=== PATIENT | male | born 1960 | race Caucasian/White ===

== ENCOUNTER 2017-09-19 10:49 | Outpatient (CLI) | payer MEDICARE, OTHER | END 2017-09-19 10:50 | disposition home or self-care (01) | LOC: BICRAD 10:49 | PROVIDERS: ATTEND Family Medicine | DX: M79.641 Pain in right hand (principal); S62.306A Unspecified fracture of fifth metacarpal bone, right hand, initial encounter for closed fracture ==

== ENCOUNTER 2017-10-05 10:50 | Outpatient (CLI) | payer MEDICARE, OTHER | END 2017-10-05 10:51 | disposition home or self-care (01) | LOC: BICMAMMO 10:50 | PROVIDERS: ATTEND Family Medicine | DX: Z13.820 Encounter for screening for osteoporosis (principal); S62.346D Nondisplaced fracture of base of fifth metacarpal bone, right hand, subsequent encounter for fracture with routine healing; M85.88 Other specified disorders of bone density and structure, other site | CPT/HCPCS: 77080 ==

== ENCOUNTER 2018-07-09 10:25 | Outpatient (CLI) | payer MEDICARE, OTHER ==
--- NOTE | 2018-07-09 11:37 | RAD ---
ONE VIEW CHEST: History: Supraclavicular fossa fullness. Comparison: None. FINDINGS: Normal cardiac silhouette. The pulmonary vessels and hilum are normal. Costophrenic angles are clear. No mass. No consolidation. No pneumothorax or osseous abnormality. IMPRESSION: No acute cardiopulmonary process. POS: [facility]
--- NOTE | 2018-07-09 12:12 | RAD ---
CHEST TWO VIEWS: History: Supraclavicular fossa fullness. Comparison: None. FINDINGS: Normal cardiac silhouette. The pulmonary vessels and hilum are normal. Costophrenic angles are clear. No consolidation or masses. No pneumothorax. Chronic change along the posterior right 8th rib. IMPRESSION: No acute cardiopulmonary process. POS: [facility]
== END 2018-07-09 10:26 | disposition home or self-care (01) ==
LOC: BICRAD 10:25
PROVIDERS: ATTEND Family Medicine
DX: R22.2 Localized swelling, mass and lump, trunk (principal)
CPT/HCPCS: 71045; 71046

== ENCOUNTER 2018-10-07 12:34 | Outpatient (CLI) | payer MEDICARE, OTHER ==
[~2018-10-07 12:34] MED LIST: Iopamidol 370 76% 100 ML VIAL ONE
--- NOTE | 2018-10-07 13:29 | CT ---
CT NECK SOFT TISSUES WITH CONTRAST: 10/07/2018 HISTORY: A 58-year-old male with left-sided neck swelling. FINDINGS: Posterior to the external skin marking, there is a cluster of a few mildly enlarged left lateral uppe r supraclavicular lymph nodes, at least two. The larger one is approximately 1 cm in size. It is un certain whether or not this cluster corresponds to the palpable lump or swelling mentioned in the his tory. There are no other significantly enlarged cervical lymph nodes. There is nonspecific asymmetry of th e larynx. There is a 0.7 x 0.5 x 0.7 cm focal low density mucosal lesion protruding from the left li ngual tonsil into the left side of the vallecula, contacting the epiglottis. The epiglottis is not t hickened. There is a tiny calcification at the inferior edge of this cystic lesion. No major pathology of the thyroid gland identified. No major pathology identified involving the post erior cervical, retropharyngeal, parapharyngeal, carotid, parotid, scale installer, or submandibular space s. IMPRESSION: 1. Slightly prominent, nonspecific left supraclavicular lymph nodes. 2. Incidental finding of an exophytic cystic lesion protruding from the left side of the lingual ton anand to the left side of the vallecula. 3. No other significant pathology identified. POS: [facility]
== END 2018-10-07 12:35 | disposition home or self-care (01) ==
LOC: BICCT 12:34
PROVIDERS: ATTEND Family Medicine
DX: R22.1 Localized swelling, mass and lump, neck (principal)
CPT/HCPCS: 70491; 82565; Q9967

== ENCOUNTER 2019-10-07 09:17 | Outpatient (CLI) | payer MEDICARE, OTHER ==
--- NOTE | 2019-10-07 14:07 | BD ---
BONE DENSITOMETRY USING DEXA: HISTORY: A 59-year-old male with screening for osteoporosis. FINDINGS: Lumbar Spine: BMD (g/cm2) L1 1.065 T-Score: -0.1 Z-Score: 0.5 L2 1.184 T-Score: 0.8 Z-Score: 1.5 L3 1.242 T-Score: 1.3 Z-Score: 1.9 L4 1.231 T-Score: 1.3 Z-Score: 2.0 L1-L4 1.184 T-Score: 0.8 Z-Score: 1.5 Femoral Neck: 0.714 T-Score: -1.6 Z-Score: -0.6 Total Femur: 0.927 T-Score: -0.7 Z-Score: -0.2 The 10-year fracture risk for a major osteoporotic fracture is 10% and for a hip fracture is 1.3%. Impression: Osteopenia. POS: [facility]
== END 2019-10-07 09:18 | disposition home or self-care (01) ==
LOC: BICMAMMO 09:17
PROVIDERS: ATTEND Internal Medicine Endocrinology, Diabetes & Metabolism
DX: M85.859 Other specified disorders of bone density and structure, unspecified thigh (principal); E27.49 Other adrenocortical insufficiency; M89.9 Disorder of bone, unspecified
CPT/HCPCS: 77080

== ENCOUNTER 2021-07-22 09:14 | Outpatient (CLI) | payer MEDICARE, OTHER | END 2021-07-22 09:15 | disposition home or self-care (01) | LOC: MRI 09:14 | PROVIDERS: ATTEND Family Medicine | DX: M54.2 Cervicalgia (principal); M47.812 Spondylosis without myelopathy or radiculopathy, cervical region; M50.30 Other cervical disc degeneration, unspecified cervical region; M48.02 Spinal stenosis, cervical region | CPT/HCPCS: 72141 ==

== ENCOUNTER 2021-12-12 10:11 | Outpatient (CLI) | payer MEDICARE, OTHER ==
[2021-12-12 11:17] LABS: #Eosinphils 0.2 10x3/uL (0.0-0.5); #Monocytes 0.3 10x3/uL (0.0-1.1); #Neutrophils 2.8 10x3/uL (1.5-8.4); %Basophils 0.7 % (0.0-2.0); %Eosinophils 5.6 % (0.0-6.0); %Lymphocytes 20.7 % (18.0-47.0); %Monocytes 7.2 % (0.0-10.0); %Neutrophils 65.3 % (40.0-75.0); Hemoglobin 13.8 g/dL (13.5-17.5); Mean Corpuscular HGB CONC 33.5 g/dL (32.0-36.0); Mean Corpuscular Hemoglobin 30.7 pg (27.0-33.0); Mean Corpuscular Volume 91.8 fl (81.2-95.1); Mean Platelet Volume 9.2 fl (7.4-10.4); Platelet Count 260 10x3/uL (150-450); RBC Distribution Width 12.3 % (11.5-14.5); Red Blood Cell (RBC) Count 4.49 10x6/uL (4.32-5.72); White Blood Cell (WBC) Count 4.3 10x3/uL (3.5-10.5)
[2021-12-12 11:43] LABS: Anion Gap 15 mmol/L (10-20); BUN (Urea Nitrogen) 15 mg/dL (8.4-25.7); Calc. Creatinine Clearance 0 mL/min (70-130); Calcium 8.8 mg/dL (7.8-10.44); Carbon Dioxide 24 mmol/L (23-31); Chloride 106 mmol/L (98-107); Estimated GFR 78; Glucose 151 mg/dL (80-115); Sodium 141 mmol/L (136-145)
== END 2021-12-12 10:12 | disposition home or self-care (01) ==
LOC: LABBT 10:11
PROVIDERS: ATTEND Surgery
DX: U07.1 COVID-19 (principal); Z01.818 Encounter for other preprocedural examination; K40.90 Unilateral inguinal hernia, without obstruction or gangrene, not specified as recurrent; K42.9 Umbilical hernia without obstruction or gangrene
CPT/HCPCS: 80048; 85025; 87811; 93005; 93010

== ENCOUNTER 2021-12-13 10:18 | Outpatient (CLI) | payer MEDICARE, OTHER | END 2021-12-13 10:19 | disposition home or self-care (01) | LOC: LABBT 10:18 | PROVIDERS: ATTEND Surgery | DX: U07.1 COVID-19 (principal) | CPT/HCPCS: U0003; U0005 ==

== ENCOUNTER 2021-12-28 09:10 | Outpatient (CLI) | payer MEDICARE, OTHER | END 2021-12-28 09:11 | disposition home or self-care (01) | LOC: BICMAMMO 09:10 | PROVIDERS: ATTEND Family Medicine | DX: M85.851 Other specified disorders of bone density and structure, right thigh (principal); M85.852 Other specified disorders of bone density and structure, left thigh | CPT/HCPCS: 77080 ==

== ENCOUNTER 2022-01-10 06:06 | Day surgery (SDC) | payer MEDICARE, OTHER ==
[2022-01-06 10:40] VITALS: BMI 27.3
[2022-01-10] MEDS ORDERED: CEFAZOLIN 2 GM VIAL ONE (06:25)
[2022-01-10] MEDS ORDERED: Sodium Chloride 0.9% 100 ML ONE (06:25)
[2022-01-10] MEDS ORDERED: Lidocaine 1% MPF 2 ML VIAL ONE (06:25)
[2022-01-10] MEDS ORDERED: Bupivacaine/Epinephrine 0.25% 30 ML VIAL ONE (06:48)
[2022-01-10] MEDS ORDERED: fentaNYL Citrate/PF 100 MCG/2 ML SYRINGE ONE (06:49)
[2022-01-10] MEDS ORDERED: Albuterol Sulfate HFA (OR ONLY) ONE ×2 (07:17→07:42)
[2022-01-10] MEDS ORDERED: SUGAMMADEX SODIUM 200 MG/2 ML VIAL ONE (07:35)
[2022-01-10] MEDS ORDERED: Lidocaine 2% 6 ML SYR ONE (07:36)
[2022-01-10] MEDS ORDERED: Neostigmine Methylsulfate 3 MG/3 ML SYRINGE ONE (07:42)
[2022-01-10] MEDS ORDERED: ePHEDrine 50 MG/ML VIAL ONE (07:42)
[2022-01-10] MEDS ORDERED: Ondansetron PF 4 MG/2 ML Vial ONE (07:42)
[2022-01-10] MEDS ORDERED: PROPOFOL 200 MG/20 ML VIAL ONE (07:42)
[2022-01-10] MEDS ORDERED: Glycopyrrolate 0.2 MG/ML 5 ML SYRINGE ONE ×2 (07:42)
[2022-01-10] MEDS ORDERED: Rocuronium Bromide 10 MG/ML (10ML VIAL) ONE (07:42)
[2022-01-10] MEDS ORDERED: Lidocaine 1% PF 5 ML VIAL ONE (07:42)
[2022-01-10] MEDS ORDERED: HYDROcodone/Acetaminophen 5/325 mg Tablet ONE (10:32)
== END 2022-01-10 14:20 | disposition home or self-care (01) ==
LOC: SDC 06:06
PROVIDERS: ATTEND Surgery
PROC: 0YU64JZ Supplement Left Inguinal Region with Synthetic Substitute, Percutaneous Endoscopic Approach (ICD-10-PCS; principal; 2022-01-10)
PROC: 0WUF0JZ Supplement Abdominal Wall with Synthetic Substitute, Open Approach (ICD-10-PCS; 2022-01-10)
PROC: 8E0W4CZ Robotic Assisted Procedure of Trunk Region, Percutaneous Endoscopic Approach (ICD-10-PCS; 2022-01-10)
DX: K40.90 Unilateral inguinal hernia, without obstruction or gangrene, not specified as recurrent (principal); K42.9 Umbilical hernia without obstruction or gangrene; Z79.02 Long term (current) use of antithrombotics/antiplatelets; Z79.899 Other long term (current) drug therapy; Z88.8 Allergy status to other drugs, medicaments and biological substances
CPT/HCPCS: C1781; C1889; J0690; J2405; J2704; J3490

== ENCOUNTER 2023-02-05 10:19 | Outpatient (CLI) | payer MEDICARE, OTHER | END 2023-02-05 10:20 | disposition home or self-care (01) | LOC: RAD 10:19 | PROVIDERS: ATTEND Family Medicine | DX: M79.672 Pain in left foot (principal) ==